=== PATIENT | male | born 1940 | race Caucasian/White ===

== ENCOUNTER 2017-01-08 18:15 | Inpatient (IN) | payer OTHER ==
--- NOTE | 2017-01-08 18:32 | CPEKG ---
Heart Rate: 98 RR Interval: 612 QRSD Interval: 80 QT Interval: 356 QTC Interval: 455 QRS [place]: 1 T Wave [place]: 43 EKG Severity - ABNORMAL ECG - EKG Impression: ATRIAL FIBRILLATION, V-RATE 61-125 Electronically Signed By: Moisés Nicole 08-Jan-2017 22:59:31
[2017-01-08] MEDS ORDERED: ASPIRIN 81 MG CHEWABLE TAB PO ONE (18:34)
[2017-01-08] MEDS ORDERED: NS 1,000 ML IV ONE (18:34)
--- NOTE | 2017-01-08 18:35 | EDPHY ---
H & P Stated Complaint: hx afib 1 hr cp hurts with deep breath HPI/ROS: HPI CHIEF COMPLAINT: Chest pain, atrial fibrillation HISTORY OF PRESENT ILLNESS: Patient is a very pleasant 76-year-old male, visiting from [place], took a flight earlier today landing earlier. He was walking [place] and [place] [address] [place] [place] developed chest discomfort. He describes it as substernal pain. He has a hard time describing the pain. Describes it as a discomfort center of his chest radiates laterally bilaterally. Does not go to his back. Denies jaw pain arm pain neck pain. Denies nausea vomiting or diaphoresis. The pain is worse when he takes deep breath in. He has no history of PE. He is on Xarelto for chronic AFib. He is in AFib chronically reports. Last stress test over 5 years ago. No history of TX or stroke. He otherwise been feeling well. No belly pain, no back pain. No extremity pain. Patient does report that in September he fell on his right knee and has had pain to his right knee and swelling since then. Past Medical History: Atrial fibrillation on Xarelto Past Surgical History: No recent surgery Social History: Denies daily use drugs alcohol tobacco products. Resides in [place]. Here for football game. Family History: Noncontributory ROS REVIEW OF SYSTEMS: A comprehensive 10 point review of systems is otherwise negative aside from elements mentioned in the history of present illness. Exam Constitutional appears well nontoxic, triage nursing summary reviewed, vital signs reviewed, awake/alert. Eyes normal conjunctivae and sclera, EOMI, PERRLA. HENT normal inspection, atraumatic, moist mucus membranes, no epistaxis, neck supple/ no meningismus, no raccoon eyes. Respiratory clear to auscultation bilaterally, normal breath sounds, no respiratory distress, no wheezing. Cardiovascular rate normal, regular rhythm, no murmur, no edema, distal pulses normal. Gastrointestinal soft, non-tender, no rebound, no guarding, normal bowel sounds, no distension, no pulsatile mass. Genitourinary no CVA tenderness. Musculoskeletal no midline vertebral tenderness, full range of motion, no calf swelling, no tenderness of extremities, no meningismus, good pulses, neurovascularly intact. Skin pink, warm, & dry, no rash, skin atraumatic. Neurologic awake, alert and oriented x 3, AAOx3, moves all 4 extremities equally, motor intact, sensory intact, CN II-XII intact, normal cerebellar, normal vision, normal speech. Psychiatric normal mood/affect. Heme/Lymph/Immune no lymphadenopathy. Differential diagnosis includes but is not limited to: ACS, atypical chest pain , pneumothorax, pneumonia, pulmonary embolism, aortic dissection, congestive heart failure, tumor, musculoskeletal pain, esophageal pain, GERD, peptic ulcer disease, pancreatitis Medical Decision Making: Plan for this patient IV establishment with IV fluid bolus, full-dose aspirin, check troponin, EKG, chest x-ray, D-dimer. Re- evaluate. Re-evaluation: EKG interpretation by me on record in [employer] system. Impression time of EKG 1829, this is AFib rate of 98. I do not appreciate acute ischemia. Specifically is no ST elevation or significant ST depression. Q-waves noted V1 V2. Otherwise unremarkable EKG. 1905: I did review this patient's blood work. His D-dimer is negative troponin still pending however the patient has concerning symptoms of sharp tearing chest pain. Will proceed with CT angiogram of his chest to make sure does not have a pulmonary embolism or aortic dissection. CT scan: angio chest with IV contrast this was called to me by Dr. Lopez. Shows no pulmonary embolism and no aortic dissection however it does show significant coronary artery disease. Calcification of the LAD. 2010: Updated patient on findings of CT scan. Significant coronary artery disease seen on the CT angiogram. Discussed at length about possible need for admission observation for chest discomfort. Troponin negative. EKG nonischemic but does show AFib. In the setting that he is 76 years old has unexplained chest discomfort patient be admitted to the hospitalist service for serial enzymes and cardiac rule out. 2017: Spoke with the hospitalist service Dr. Gayle who agrees to admit patient for chest pain evaluation. Source: Patient - Personal History Current Tetanus/Diphtheria Vaccine: Yes - Medical/Surgical History Hx Asthma: No Hx Chronic Respiratory Disease: No Hx Diabetes: No Hx Cardiac Disease: Yes Hx Renal Disease: No Hx Cirrhosis: No Hx Alcoholism: No Hx HIV/AIDS: No Hx Splenectomy or Spleen Trauma: No Other PMH: afib/ - Social History Smoking Status: Former smoker Constitutional: Initial Vital Signs Temperature (C) 36.6 C 01/08/17 18:19 Heart Rate 84 01/08/17 18:19 Respiratory Rate 18 01/08/17 18:19 Blood Pressure 150/105 H 01/08/17 18:19 O2 Sat (%) 99 01/08/17 18:19 O2 Delivery Mode Room Air Allergies/Adverse Reactions: No Known Allergies Allergy (Unverified 01/08/17 18:17) Home Medications: Medication Instructions Recorded Atorvastatin Calcium [Lipitor 20 20 mg PO HS 01/08/17 mg (*)] Budesonide [Rhinocort Allergy] 1 spray NS DAILY 01/08/17 Diltiazem HCl [Diltiazem 24Hr Cd] 180 mg PO HS 01/08/17 Fexofenadine HCl [Louise Allergy] 180 mg PO DAILY 01/08/17 Ranitidine HCl [Zantac] 150 mg PO DAILY 01/08/17 Silodosin [RAPAFLO] 8 mg PO HS 01/08/17 Tadalafil [Cialis] 5 mg PO HS 01/08/17 Ibuprofen [Motrin (*)] 600 mg PO TID tab 01/10/17 Medical Decision Making - Diagnostics Imaging Results: Imaging Impressions Myocardial Perfusion Scan Nuc Med 01/09/17 09:30 Impression: 1. Fixed in for wall defect. 2. No evidence of ischemia. Results reviewed with Dr. Toi Angeles at 10:04 AM - Data Points Laboratory Results: Laboratory Results 01/09/17 04:17 01/09/17 04:17 Medications Given: Atorvastatin Calcium (Lipitor) 20 mg PO HS GRACE Stop: 07/08/17 20:59 Last Admin: 01/09/17 19:37 Dose: 20 mg Diltiazem HCl (Cardizem Er Q24hr) 180 mg PO HS GRACE Stop: 07/08/17 20:59 Last Admin: 01/09/17 19:37 Dose: 180 mg Famotidine (Pepcid) 20 mg PO BID GRACE Stop: 07/08/17 08:59 Last Admin: 01/10/17 08:36 Dose: 20 mg Ibuprofen (Motrin) 600 mg PO TID GRACE Stop: 07/08/17 15:59 Last Admin: 01/10/17 08:36 Dose: 600 mg Discontinued Medications Aspirin (Aspirin) 324 mg PO EDNOW ONE Stop: 01/08/17 18:35 Last Admin: 01/08/17 18:40 Dose: 324 mg Sodium Chloride (Ns) 1,000 mls @ 0 mls/hr IV EDNOW ONE; Wide Open PRN Reason: Protocol Stop: 01/08/17 18:35 Last Admin: 01/08/17 18:41 Dose: 1,000 mls Rivaroxaban (Xarelto) 20 mg PO DAILY GRACE Stop: 07/08/17 08:59 Last Admin: 01/09/17 13:29 Dose: Not Given Departure - Departure Disposition: [facility] Acute Clinical Impression: Chest pain Qualifiers: Chest pain type: unspecified Qualified Code(s): R07.9 - Chest pain, unspecified Condition: Fair
[2017-01-08 18:43] LABS: % IMMATURE GRANULYOCYTES 0.3 % (0.0-1.1); ABSOLUTE IMMATURE GRANULOCYTES 0.03 10^3/uL (0.00-0.10); ADD DIFF? NO; ADD MORPH? NO; ADD SCAN? NO; ATYPICAL LYMPHOCYTE FLAG 0 (0-99); FRAGMENT RBC FLAG 0 (0-99); HEMATOCRIT 41.3 % (40.0-51.0); HEMOGLOBIN 14.3 g/dL (13.7-17.5); LEFT SHIFT FLG 0 (0-99); LIPEMIA HEMOLYSIS FLAG 90 (0-99); MEAN CELL HEMOGLOBIN 32.4 pg (27.9-34.1); MEAN CELL HEMOGLOBIN CONCENTR. 34.6 g/dL (32.4-36.7); MEAN CELL VOLUME 93.4 fL (81.5-99.8); MEAN PLATELET VOLUME 10.6 fL (8.7-11.7); PLATELET CLUMPS FLAG 0 (0-99); PLATELET COUNT 191 10^3/uL (150-400); RED BLOOD CELL COUNT 4.42 10^6/uL (4.40-6.38); RED CELL DISTRIBUTION WIDTH 13.5 % (11.5-15.2)
[2017-01-08 18:51] LABS: INR 1.64 (0.83-1.16); PROTIME(PATIENT) 19.5 SEC (12.0-15.0)
[2017-01-08 18:52] LABS: APTT 35.3 SEC (23.0-38.0)
[2017-01-08 19:02] LABS: ALANINE AMINOTRANSFERASE 37 IU/L (21-72); ALBUMIN 4.3 g/dL (3.5-5.0); ALKALINE PHOSPHATASE 81 IU/L (38-126); ANION GAP 12 mEq/L (8-16); ASPARTATE AMINOTRANSFERASE 30 IU/L (17-59); BILIRUBIN,TOTAL 0.6 mg/dL (0.1-1.4); BILIRUBIN-CONJUGATED 0.2 mg/dL (0.0-0.5); BILIRUBIN-UNCONJUGATED 0.4 mg/dL (0.0-1.1); CALCIUM 9.4 mg/dL (8.5-10.4); CARBON DIOXIDE 26 mEq/l (22-31); CHLORIDE 102 mEq/L (97-110); CREATININE 0.8 mg/dL (0.7-1.3); GLOMERULAR FILTRATION RATE > 60; GLUCOSE 93 mg/dL (70-100); POTASSIUM 3.7 mEq/L (3.5-5.2); SODIUM 140 mEq/L (134-144); TOTAL PROTEIN 6.4 g/dL (6.3-8.2)
[2017-01-08 19:14] LABS: CREATINE KINASE-MB FRACTION 1.46 ng/mL (0.00-3.19); TROPONIN I < 0.012 ng/mL (0.000-0.034)
[2017-01-08] MEDS ORDERED: IOPAMIDOL (ISOVUE 370) 100 ML BTL IV ONE (19:15)
[2017-01-08] MEDS ORDERED: ONDANSETRON DISINTEGRATING 4 MG TAB PO PRN (22:21)
[2017-01-08] MEDS ORDERED: ONDANSETRON 4 MG/2 ML VIAL IVP PRN (22:21)
[2017-01-08] MEDS ORDERED: ACETAMINOPHEN 325 MG TAB PO PRN (22:21)
--- NOTE | 2017-01-09 02:30 | PDGENHP ---
History and Physical - Chief Complaint Chest pain - History of Present Illness 76 yo M with hx AF presents with chest pain. He is visiting from [place] and today experienced an episode of central chest pain with inspiration after walking around town for a few hours. He felt ok while walking around but experienced the pain after returning to his hotel room. The pain lasted for several hours and subsided slowly over time without particular intervention. Patient denies prior hx of CAD and he reports having a normal treadmill stress test about 5 years ago. History Information - Allergies/Home Medication List Allergies/Adverse Reactions: No Known Allergies Allergy (Unverified 01/08/17 18:17) Home Medications: Atorvastatin Calcium [Lipitor 20 mg (*)] 20 mg PO HS 01/08/17 [Last Taken Unknown] Budesonide [Rhinocort Allergy] 1 spray NS DAILY 01/08/17 [Last Taken Unknown] Diltiazem HCl [Diltiazem 24Hr Cd] 180 mg PO HS 01/08/17 [Last Taken Unknown] Fexofenadine HCl [Louise Allergy] 180 mg PO DAILY 01/08/17 [Last Taken 01/08/17 ] Ranitidine HCl [Zantac] 150 mg PO DAILY 01/08/17 [Last Taken 01/08/17] Rivaroxaban [Xarelto] 20 mg PO DAILY 01/08/17 [Last Taken 01/08/17] Silodosin [Rapaflo] 8 mg PO HS 01/08/17 [Last Taken Unknown] Tadalafil [Cialis] 5 mg PO HS 01/08/17 [Last Taken Unknown] I have personally reviewed and updated: family history, medical history - Past Medical History atrial fibrillation - Family History Additional family history: Father had a heart murmur but lived until age 95 - Social History Smoking Status: Former smoker Review of Systems Review of Systems: ROS: 10pt was reviewed & negative except for what was stated in HPI & below Physical Exam Physical Exam: Temp Pulse Resp BP Pulse Ox 36.4 C 84 13 107/66 96 01/08/17 23:24 01/08/17 23:24 01/08/17 23:24 01/08/17 23:24 01/08/17 23:24 Constitutional: no apparent distress, appears nourished Eyes: PERRL, EOMI Ears, Nose, Mouth, Throat: moist mucous membranes, no oral mucosal ulcers Cardiovascular: regular rate and rhythym, no murmur, rub, or gallop Respiratory: no respiratory distress, no rales or rhonchi Gastrointestinal: normoactive bowel sounds, soft, non-tender abdomen Skin: warm, normal color Musculoskeletal: full muscle strength, no muscle tenderness Neurologic: AAOx3, CN II-XII Intact Lab Data & Imaging Review 01/08/17 18:30 01/08/17 18:30 WBC 9.66 10^3/uL (3.80-9.50) H 01/08/17 18:30 RBC 4.42 10^6/uL (4.40-6.38) 01/08/17 18:30 Hgb 14.3 g/dL (13.7-17.5) 01/08/17 18:30 Hct 41.3 % (40.0-51.0) 01/08/17 18:30 MCV 93.4 fL (81.5-99.8) 01/08/17 18:30 MCH 32.4 pg (27.9-34.1) 01/08/17 18:30 MCHC 34.6 g/dL (32.4-36.7) 01/08/17 18:30 RDW 13.5 % (11.5-15.2) 01/08/17 18:30 Plt Count 191 10^3/uL (150-400) 01/08/17 18:30 MPV 10.6 fL (8.7-11.7) 01/08/17 18:30 Neut % (Auto) 77.9 % (39.3-74.2) H 01/08/17 18:30 Lymph % (Auto) 11.5 % (15.0-45.0) L 01/08/17 18:30 [place] % (Auto) 8.3 % (4.5-13.0) 01/08/17 18:30 Eos % (Auto) 1.8 % (0.6-7.6) 01/08/17 18:30 Baso % (Auto) 0.2 % (0.3-1.7) L 01/08/17 18:30 Nucleat RBC Rel Count 0.0 % (0.0-0.2) 01/08/17 18:30 Absolute Neuts (auto) 7.53 10^3/uL (1.70-6.50) H 01/08/17 18:30 Absolute Lymphs (auto) 1.11 10^3/uL (1.00-3.00) 01/08/17 18:30 Absolute Monos (auto) 0.80 10^3/uL (0.30-0.80) 01/08/17 18:30 Absolute Eos (auto) 0.17 10^3/uL (0.03-0.40) 01/08/17 18:30 Absolute Basos (auto) 0.02 10^3/uL (0.02-0.10) 01/08/17 18:30 Absolute Nucleated RBC 0.00 10^3/uL (0-0.01) 01/08/17 18:30 Immature Gran % 0.3 % (0.0-1.1) 01/08/17 18:30 Immature Gran # 0.03 10^3/uL (0.00-0.10) 01/08/17 18:30 PT 19.5 SEC (12.0-15.0) H 01/08/17 18:30 INR 1.64 (0.83-1.16) H 01/08/17 18:30 APTT 35.3 SEC (23.0-38.0) 01/08/17 18:30 D-Dimer < 0.27 ug/mLFEU (0.00-0.50) 01/08/17 18:30 Sodium 140 mEq/L (134-144) 01/08/17 18:30 Potassium 3.7 mEq/L (3.5-5.2) 01/08/17 18:30 Chloride 102 mEq/L (97-110) 01/08/17 18:30 Carbon Dioxide 26 mEq/l (22-31) 01/08/17 18:30 Anion Gap 12 mEq/L (8-16) 01/08/17 18:30 BUN 15 mg/dL (7-23) 01/08/17 18:30 Creatinine 0.8 mg/dL (0.7-1.3) 01/08/17 18:30 Estimated GFR > 60 01/08/17 18:30 Glucose 93 mg/dL (70-100) 01/08/17 18:30 Calcium 9.4 mg/dL (8.5-10.4) 01/08/17 18:30 Magnesium 2.0 mg/dL (1.6-2.3) 01/08/17 18:30 Total Bilirubin 0.6 mg/dL (0.1-1.4) 01/08/17 18:30 Conjugated Bilirubin 0.2 mg/dL (0.0-0.5) 01/08/17 18:30 Unconjugated Bilirubin 0.4 mg/dL (0.0-1.1) 01/08/17 18:30 AST 30 IU/L (17-59) 01/08/17 18:30 ALT 37 IU/L (21-72) 01/08/17 18:30 Alkaline Phosphatase 81 IU/L (38-126) 01/08/17 18:30 Creatine Kinase 82 IU/L (0-224) 01/08/17 18:30 CK-MB (CK-2) Fraction 1.46 ng/mL (0.00-3.19) 01/08/17 18:30 Troponin I < 0.012 ng/mL (0.000-0.034) 01/08/17 18:30 NT-Pro-B Natriuret Pep 644 pg/mL (0-450) H 01/08/17 18:30 Total Protein 6.4 g/dL (6.3-8.2) 01/08/17 18:30 Albumin 4.3 g/dL (3.5-5.0) 01/08/17 18:30 Lipase 109 IU/L (23-300) 01/08/17 18:30 Imaging Review: CTPE without abnormality aside form incidentally found thyroid nodule. Visualized and Interpreted EKG results: Yes EKG additional interpertation: Atrial fibrillation Assessment & Plan Assessment: 76 yo M w/ AF presents with chest pain. Plan: 1. Chest pain - Somewhat atypical in that pain seemed to be unrelated to exertion, but concerning given age nonetheless. Troponin and ECG without evidence of acute ischemia upon admission. - Monitor on telemetry, trend enzymes - Will order nuclear stress test noting recent R knee injury 2. Hx AF - Permanent per patient's report, on Xarelto and diltiazem daily for this. Diet - NPO @ [place], no caffeine Code - Full Ppx - Xarelto Dispo - Admit to observation status
[2017-01-09 04:25] LABS: % IMMATURE GRANULYOCYTES 0.2 % (0.0-1.1); ABSOLUTE IMMATURE GRANULOCYTES 0.01 10^3/uL (0.00-0.10); ADD DIFF? NO; ADD MORPH? NO; ADD SCAN? NO; ATYPICAL LYMPHOCYTE FLAG 0 (0-99); FRAGMENT RBC FLAG 0 (0-99); HEMATOCRIT 34.9 % (40.0-51.0); HEMOGLOBIN 12.1 g/dL (13.7-17.5); LEFT SHIFT FLG 0 (0-99); LIPEMIA HEMOLYSIS FLAG 90 (0-99); MEAN CELL HEMOGLOBIN 32.2 pg (27.9-34.1); MEAN CELL HEMOGLOBIN CONCENTR. 34.7 g/dL (32.4-36.7); MEAN CELL VOLUME 92.8 fL (81.5-99.8); MEAN PLATELET VOLUME 10.4 fL (8.7-11.7); PLATELET CLUMPS FLAG 0 (0-99); PLATELET COUNT 140 10^3/uL (150-400); RED BLOOD CELL COUNT 3.76 10^6/uL (4.40-6.38); RED CELL DISTRIBUTION WIDTH 13.9 % (11.5-15.2)
[2017-01-09 04:48] LABS: ANION GAP 9 mEq/L (8-16); CALCIUM 8.4 mg/dL (8.5-10.4); CARBON DIOXIDE 24 mEq/l (22-31); CHLORIDE 106 mEq/L (97-110); CREATININE 0.8 mg/dL (0.7-1.3); GLOMERULAR FILTRATION RATE > 60; GLUCOSE 92 mg/dL (70-100); SODIUM 139 mEq/L (134-144)
[2017-01-09 04:59] LABS: TROPONIN I < 0.012 ng/mL (0.000-0.034)
[2017-01-09] MEDS ORDERED: RIVAROXABAN 20 MG TAB PO SCH (09:00)
[2017-01-09] MEDS ORDERED: REGADENOSON 0.4 MG/5 ML SYR IVP ONE (09:28)
--- NOTE | 2017-01-09 10:27 | CPR ---
[f rep st] NONINVASIVE CARDIAC PROCEDURE REPORT DATE OF PROCEDURE: 01/09/2017 PROCEDURE: Lexiscan nuclear stress test. INDICATION: The patient is a 76-year-old male with a history of permanent atrial fibrillation, who p resented to the hospital complaining of a few hours of chest pressure. He is visiting [employer] [facility] [employer], and went for a walk on [place], and felt fine. When he returned to his residence, he devel oped a pressure in his chest which persisted for hours. It was worse with deep breaths. He denies a ny nausea, diaphoresis, or radiation of the discomfort. He denies any history of hypertension, diabe jose, hyperlipidemia or prior tobacco use. Procedure consent was obtained and the patient was placed on continuous telemetry. His resting EKG r evealed atrial fibrillation with heart rate of 81. He has a QRS duration of 74, and a QTc of 446. T his is a nonischemic EKG. The patient was infused with Lexiscan and complained of some mild shortnes s of breath. He remained in atrial fibrillation, rate control throughout the study. There were no s ignificant ST-T wave changes with the infusion. His blood pressure at rest was 104/62, and dropped w ith the infusion to 92/58. It recovered within 4 minutes into the recovery phase. PLAN: Await nuclear images. /[id number]/MODL
--- NOTE | 2017-01-09 11:56 | ASMTCMCOM ---
CM Note CM Note Notes: Pt. is a 76-year-old man who chart states is visiting from [place]. Address listed as [facility]. Pt. came in for chest pain. Pt. lives w/ his Apple. Ancitipate independent d/c when ready. CM available should d/c POC change. Date Signed: 01/09/2017 11:55 AM Electronically Signed By:Cici Springer LCSW
--- NOTE | 2017-01-09 12:21 | SOAPPROG ---
[facility] Progress Note Assessment/Plan: Assessment: Full cardiology consultation dictated. 76 y/o man with chronic permanent afib since 2000 visiting from [place]. Last ETT stress test roughly 2011. Had pleuritic CP x 3hrs at hotel yesterday. Denies fevers, chills or shortness of breath. No recent URI. Lexiscan cardiolite stress images today show lack of perfusion in inferior wall (? scar vs artifact vs true ischemia). Currently CP-free and troponins negative x 2. ECG afib with ST elevation < 1mm. Clinically I suspect pericarditis. On Xarelto currently. REC: 1)hold Xarelto 2)echo today to look for pericardial effusion 3)Ibuprofen 600mg PO TID 4)rest cardiolite images wednesday. If matched perfusion defect and CP free could discharge home Wednesday late morning 5)if true ischemia after rest cardiolite images done, cardiac cath Wednesday after 36-48hrs off Xarelto Thanks. Will follow with you. 01/09/17 12:17 Objective: Vital Signs Temp Pulse Resp BP Pulse Ox 36.4 C 73 16 103/69 98 01/09/17 11:21 01/09/17 11:21 01/09/17 11:21 01/09/17 11:21 01/09/17 11:21 Laboratory Results 01/09/17 04:17 01/09/17 04:17 PT 19.5 SEC (12.0-15.0) H 01/08/17 18:30 INR 1.64 (0.83-1.16) H 01/08/17 18:30 ICD10 Worksheet Patient Problems: Problems Problem Status Onset Chest pain Acute
--- NOTE | 2017-01-09 12:32 | HOSPPROG ---
Hospitalist Progress Note Assessment/Plan: First encounter with this patient 76 y/o man with chronic permanent afib since 2000 visiting from [place]. Admitted for chest pain. Lexiscan cardiolite stress images today show lack of perfusion in inferior wall (? scar vs artifact vs true ischemia). Denies CP. Trops negative x 2. Cards consulted today. Suspect Pericarditis Plan: -Ibuprofen 600mg TID -cardiolite imaging tomorrow per Cards -If matched perfusion defect and CP free, discharge. If ? Ischemia, then Cath Wednesday -stopped Xarelto today #Chest pain #?Pericarditis #?Cardia ischemia #Chronic permanent Afib, diltiazem and Xarelto #Chronic AC, holding Xarelto Code - Full Ppx - SCD's Dispo - change to inpatient Subjective: No CP or SOB. No palpitations. feels better Objective: Vital Signs Temp Pulse Resp BP Pulse Ox 36.4 C 73 16 103/69 98 01/09/17 11:21 01/09/17 11:21 01/09/17 11:21 01/09/17 11:21 01/09/17 11:21 Laboratory Results 01/09/17 04:17 01/09/17 04:17 PT 19.5 SEC (12.0-15.0) H 01/08/17 18:30 INR 1.64 (0.83-1.16) H 01/08/17 18:30 - Physical Exam Constitutional: no apparent distress, appears nourished Eyes: PERRL, EOMI Ears, Nose, Mouth, Throat: moist mucous membranes, hearing normal Cardiovascular: regular rate and rhythym, no murmur, rub, or gallop Respiratory: no respiratory distress, no rales or rhonchi, clear to auscultation Gastrointestinal: normoactive bowel sounds, soft, non-tender abdomen Genitourinary: no bladder fullness Skin: warm Neurologic: AAOx3 Psychiatric: interacting appropriately, not anxious, not encephalopathic, thought process linear ICD10 Worksheet Patient Problems: Problems Problem Status Onset Chest pain Acute
--- NOTE | 2017-01-09 13:02 | PDMN ---
Medical Necessity Medical necessity: C/M review: Patient meeets INPT criteria under MCG M-89 Chest pain; Acute chest pain, lack of perfusion in inferior wall on Lexiscan cardiolite stress images 01/09/2017 concerning for possible cardiac ischemia, suspect pericarditis requiring planned 01/11/2016 Cardiolite rest images, if shows likely cardiac ischemia, then 01/11/2017 cardiac cath and ongoing cardiac monitoring, comorbid chronic permanent atrial fibrillation, chronic anticoagulation. MD anticipates > 2 MN LOS for ongoing med nec for ongoing eval and TX of above.
--- NOTE | 2017-01-09 13:17 | GCON ---
[f rep st] CONSULTATION DATE OF CONSULTATION: 01/09/2017 REASON FOR CONSULTATION: Evaluate gentleman with chest pain and abnormal stress Cardiolite images. 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 He has had atrial fibrillation since 1996, and permanent, chronic atrial fibrillation since roughly 2000. Kera heart sees a calibration checker in [place], and thinks his last stress test was in 2011 and normal. He had an e cho 2-3 years ago, which he was told was okay. He has chronic sinusitis and a hoarse voice from sinu s drainage and GERD. He, however, is active without chest pain in [place]. He was visiting for a bret weekend, and was walking around [place] with no chest pain. When he got back to his hotel, he started to have pleuritic chest pain at rest, which continued for 2-3 hours. He came to the emergenc y room, and eventually was relieved with aspirin. Currently he is pain free. He denies fevers, chil ls, or recent URI symptoms. He has no near syncope or PND. Lexiscan stress images were done this mo rning, which suggested poor perfusion of the inferior area of his heart. PAST MEDICAL HISTORY: Chronic, permanent atrial fibrillation, hyperlipidemia, and chronic sinusitis. PAST SURGICAL HISTORY: None. CURRENT MEDICATIONS: Atorvastatin 20 mg per day, diltiazem CD 180 mg per day, Xarelto 20 mg per day, and aspirin x1. ALLERGIES: No known drug allergies. SOCIAL HISTORY: The patient has moderate alcohol intake. He quit tobacco 40 years ago. FAMILY HISTORY: Unremarkable for premature coronary artery disease. REVIEW OF SYSTEMS: The patient reports no TIA or CVA symptoms. He has no GI bleed symptoms, such as hematemesis, melena, or bright red blood per rectum. He reports no hemoptysis. Rest of 10-point re view of systems are negative. PHYSICAL EXAMINATION: VITAL SIGNS: Afebrile. Pulse 73 and irregularly irregular, consistent with a trial fibrillation. Blood pressure 103/69, respirations 20, weight 82.8 kg. GENERAL: A normal-appe aring gentleman in no acute distress without chest pain or using accessory respiratory muscles. EYES : Pupils equal, reactive to light. ENT: Oral mucosa with no cyanosis. NECK: Jugular venous press ure to 7 cm. Carotid pulses 2+ bilaterally with no obvious bruits. No thyromegaly noted. LUNGS: C lear to auscultation bilaterally without rales, rhonchi, or wheezing. HEART: Irregularly irregular rhythm with 1/6 nonradiating systolic murmur. No S3 or cardiac rub heard. ABDOMEN: Soft and nonten lynette. No guarding or rebound. No hepatosplenomegaly or ascites. EXTREMITIES: 2+ peripheral pulses, including femoral and pedal pulses. No edema noted. MUSCULOSKELETAL: No scoliosis or nuchal rigid ity. SKIN: No bleeding or cyanosis. NEURO: Normal affect and mood. LABORATORY STUDIES: EKG: Atrial fibrillation with nonspecific ST elevation, less than 1 mm througho ut. LABS: White count 5.9, hematocrit 35, platelets 140,000, MCV 93. INR 1.64. Sodium 139, potassium 4 .0, chloride 106, bicarb 24, BUN 13, creatinine 0.8, glucose 92. Troponin x2 negative. LFTs within normal limits. NT proBNP level 644. IMPRESSION: A 76-year-old gentleman with chronic, permanent atrial fibrillation for the last 15 year s with a 3-hour episode of pleuritic chest pain yesterday. Clinically, I am suspicious more of a per icarditis, probably viral in etiology. However, cannot exclude obstructive coronary artery disease, based on his stress Cardiolite images. RECOMMENDATIONS: 1. Would hold Xarelto in anticipation for possible catheterization in the next 2 days. 2. Would put on ibuprofen 600 mg q.8 hours empirically for the next several days. 3. Would do an echocardiogram today to evaluate LV function, and see if there is a significant peric ardial effusion. 4. In the morning, would do rest Cardiolite images. If he has a fixed perfusion defect and he is ch est pain-free, feel he can be discharged and go back to [place]. If there is a mismatched perfusion d efect consistent with inferior ischemia, would recommend he get a cardiac angiogram and possible sten t this hospitalization. Copy requested to: Patient's chart at [facility] /[id number]/MODL
[2017-01-09] MEDS: FAMOTIDINE 20 MG TAB PO SCH ×2 (13:30→19:37)
[2017-01-09] MEDS: IBUPROFEN 600 MG TAB PO SCH (17:34)
[2017-01-09] MEDS ORDERED: ATORVASTATIN CALCIUM 20 MG TAB PO SCH (21:00)
[2017-01-09] MEDS ORDERED: DILTIAZEM CD 180 MG CAP PO SCH (21:00)
[2017-01-10] MEDS: IBUPROFEN 600 MG TAB PO SCH ×2 (00:28→08:36)
[2017-01-10 05:09] VITALS: O2SAT 95
--- NOTE | 2017-01-10 07:58 | ECHO ---
[email or web address] [address] [address] Main: [phone] Fax: Transthoracic Echocardiogram Name: AR PRINCE MR#: [id number] Study Date: 01/09/2017 Study Time: 02:36 PM Date of : 1940 Age: 76 year(s) Height: 182.9 cm (72 in.) Weight: 82.55 kg (182 lb.) BSA: 2.05 m2 Gender: Male Examination: Echo Indication: Chest pain/suspect pericarditis Image Quality: Contrast: Requested by: Aleks Cotter BP: 103 mmHg/69 mmHg Heart Rate: Rhythm: Indication: Chest pain/suspect pericarditis Procedure Staff Termite Control Technician: Komal Jamison Physician: Aleks Cotter Requesting Provider: Conclusions: 1)Normal LV size and systolic function with a LVEF of 68% and normal wall motions. 2)Mild RV enlargement with normal RVEF. 3)Moderate left atrial and moderate to severe right atrial enlargement(s). 4)Mild MR without MV prolpase. 5)Mild TR with estimated normal PA pressures. 6)Trivial pericardial effusion noted with no tamponade signs. Measurements: Chambers Valvular Assessment AV/MV Valvular Assessment TV/PV Normal Normal Normal Name Value Range Name Value Range Name Value Range Ao Edith (MM): 3.3 cm (2.2 cm-3.7 AV Vmax: 0.98 m/s (1 m/s-1.7 TR Vmax: 1.98 mm/s ( - ) cm) m/s) TR PGmax: 16 mmHg ( - ) IVSd (2D): 0.6 cm (0.6 cm-1.1 AV maxP mmHg ( - ) syst. PAP: 26 mmHg ( - ) cm) MV E Vmax: 1.05 m/s ( - ) LVDd (2D): 5.0 cm (4.2 cm-5.9 cm) LVDs (2D): 3.1 cm (2.1 cm-4 cm) LVPWd (2D): 0.8 cm (0.6 cm-1 cm) LVEF (2D): 68 (>=54 %) EF Range: 65-70 % Continued Measurements: Chambers Valvular Assessment AV/MV Valvular Assessment TV/PV Name Value Name Value Name Value LADs: 5.3 cm MV E/E' Septal: 17.10 CVP (est.): 10 mmHg LADs Lon.4 cm MV E/E' Lateral: 11.80 Patient: AR PRINCE Study Date: 01/09/2017 Page 1 of 2 02:36 PM LA Area: 27.5 cm2 Additional Vessels Name Value Ao Ascendin.5 cm Findings: Left Ventricle: Normal size left ventricle. No LV hypertrophy. Normal global systolic LV function. The ejection fraction is estimated to be 65-70 %. No regional wall motion abnormality. Unable to assess diastolic dysfunction. Right Ventricle: Mildly dilated right ventricle. Normal RV function. Left Atrium: The left atrium is moderately dilated. Right Atrium: The right atrium is moderately to severely dilated. Mitral Valve: The mitral valve is normal in appearance and function. Mild mitral valve regurgitation is present. Aortic Valve: The aortic valve is normal in appearance and function. Tricuspid Valve: The tricuspid valve is normal in appearance and function. Mild tricuspid regurgitation is present. The pulmonary artery pressure is normal. Pulmonic Valve: The pulmonic valve is normal in appearance and function. Aorta: The aorta is normal. Pericardium: Trivial pericardial effusion. No echocardiographic evidence of hemodynamic compromise. (No Signature Object) Patient: AR PRINCE Study Date: 01/09/2017 Page 2 of 2 02:36 PM [id number]
[2017-01-10 08:09] VITALS: BP 113/74; RESP 17; TEMP 97.9
[2017-01-10] MEDS: FAMOTIDINE 20 MG TAB PO SCH (08:36)
--- NOTE | 2017-01-10 10:11 | SOAPPROG ---
VANESSA Progress Note Assessment/Plan: Assessment: 1. Pleuritic chest pain: resolved: Query pericarditis 2. Chronic atrial fibrillation 3. Anemia (hemoglobin 14-> 12 overnight) Tests: Echo yesterday with normal LV function. Inferolateral wall thickening. Small pericardial effusion. Left atrial enlargement. MPI fixed inferolateral defect. Significant uptake by the liver. 01/10/17 10:06 Impression: He has ruled out for DC by enzymes. Clinical history consistent with pericarditic pain rather than ischemic pain. Stable hemodynamics. Feeling well. - 10 days ibuprofen for presumed pericarditis. No indication for colchicine. -No indication for further cardiac evaluation at this time. -Workup for anemia. -Hold Xarelto till workup completed. -follow up cardiology at home -continue statin and diltiazem for rate control and presumptive CAD Subjective: Feeling well. Walking around without limitations. No further chest pain. Cardiac ROS negative today. Objective: Medications Generic Name Dose Route Start Last Admin Trade Name Freq PRN Reason Stop Dose Admin Atorvastatin Calcium 20 mg 01/09/17 21:00 01/09/17 19:37 Lipitor PO 07/08/17 20:59 20 mg HS GRACE Diltiazem HCl 180 mg 01/09/17 21:00 01/09/17 19:37 Cardizem Er Q24hr PO 07/08/17 20:59 180 mg HS GRACE Ibuprofen 600 mg 01/09/17 16:00 01/10/17 08:36 Motrin PO 07/08/17 15:59 600 mg TID GARCE Discontinued Medications Generic Name Dose Route Start Last Admin Trade Name Freq PRN Reason Stop Dose Admin Rivaroxaban 20 mg 01/09/17 09:00 01/09/17 13:29 Xarelto PO 07/08/17 08:59 Not Given DAILY COUNTS INCLUDE 234 BEDS AT THE [facility] Vital Signs Temp Pulse Resp BP Pulse Ox 36.6 C 88 17 113/74 95 01/10/17 08:00 01/10/17 08:00 01/10/17 08:00 01/10/17 08:00 01/10/17 08:00 01/09/17 01/10/17 01/11/17 05:59 05:59 05:59 Intake Total 550 Balance 550 PT 19.5 SEC (12.0-15.0) H 01/08/17 18:30 INR 1.64 (0.83-1.16) H 01/08/17 18:30 Laboratory Tests 01/08/17 01/08/17 01/09/17 18:30 18:30 04:17 Hgb 14.3 12.1 L Troponin I < 0.012 01/09/17 04:17 Hgb Troponin I < 0.012 Physical Exam - Physical Exam General Appearance: alert, no apparent distress Neck: non-tender, full range of motion Respiratory: chest non-tender, lungs clear, normal breath sounds Cardiac/Chest: normal peripheral pulses, irregularly irregular, No edema, No gallop, No systolic murmur Peripheral Pulses: 1+: carotid (R), carotid (L) Abdomen: normal bowel sounds, non-tender Back: Normal inspection Skin: normal color, warm/dry Lymphatic: no adenopathy Extremities: normal range of motion, non-tender Neuro/Psych: no motor/sensory deficits, normal mood/affect, oriented x 3 ICD10 Worksheet Patient Problems: Problems Problem Status Onset Chest pain Acute Past Medical History - Personal History Current Tetanus/Diphtheria Vaccine: Yes - Medical/Surgical History Hx Asthma: No Hx Chronic Respiratory Disease: No Hx Cardiac Disease: Yes Hx Diabetes: No Hx Renal Disease: No Hx Alcoholism: No Hx Cirrhosis: No Hx HIV/AIDS: No Hx Splenectomy or Spleen Trauma: No Other PMH: Afib, GERD, tonsillectomy, R knee brace - Social History Smoking Status: Former smoker Review of Systems - Review of Systems Constitutional: no symptoms reported EENTM: no symptoms reported Respiratory: no symptoms reported Cardiac: no symptoms reported Gastrointestinal/Abdominal: no symptoms reported Genitourinary: no symptoms Musculoskelatal: no symptoms Skin: no symptoms Neurological: no symptoms Hematologic/Lymphatic: no symptoms reported Immunologic/allergic: no symptoms reported
--- NOTE | 2017-01-10 11:47 | PDDCSUM ---
Discharge Summary Discharge Summary: 76 y/o man with chronic permanent afib since 2000 visiting from [place]. Admitted for chest pain. Lexiscan ON 01/09 today show lack of perfusion in inferior wall (? scar vs artifact vs true ischemia). On the day of discharge he had a resting cardiolyte test which showed matched perfusion defect. No CP and NO SOB. As for the etiology of the CP, Carlos began treatment for pericarditis with Ibuprofen and he feels better. He will be flying back to [place] today and will f/u with Cardiology there. He is to continue Ibuprofen 600mg TID x 10 days total. He had a small drop in Hgb and this can be w/u in Xarelto has been stopped per Cardiology until anemia w/u is complete and while he is on Ibuprofen DDX: #Chest pain #Pericarditis #?Cardia ischemia #Chronic permanent Afib, diltiazem. Holding Xarelto #Chronic AC, holding Xarelto Exam: NAD AAOX3 RRR CTAB S/NT/ND NO LE EDEMA MEDS: SEE MED REC F/U: WILL F/U WITH CARDS IN TOTAL CARE TIME SPENT ON D/C IS 35 MINUTES
[2017-01-10 12:06] VITALS: PULSE 82
--- NOTE | 2017-01-10 12:12 | ASMTCMCOM ---
CM Note CM Note Notes: Patient has been discharged home. He and his will be flying back to [place]. No other needs at this time. Date Signed: 01/10/2017 12:11 PM Electronically Signed By:Madhavi Nava LCSW
--- NOTE | 2017-01-10 14:31 | ASDISCHSUM ---
Discharge Information Plan Status:Home with No Needs Medically Cleared to Leave:01/10/2017 Discharge Date:01/10/2017 01:01 PM CM D/C Disposition:Home, Routine, Self-Care ADT D/C Disposition:Home, Routine, Self-Care Projected Discharge Date:01/10/2017 02:00 PM Transportation at D/C:Family Discharge Delay Reason: Follow-Up Date:01/10/2017 02:00 PM Discharge Slot:2 - 12:01 pm - 18:00 pm Final Diagnosis:CP, Pericarditis, Afib Placement Information Patient Contact Information Contact Name:MATTHEW Relationship: Address:[address] City:[facility] Phone: State/Zip Code:[place] [address] Email: Financial Information Financial Class:[employer] Primary Plan Desc:[facility] Primary Plan Number:[id number] Secondary Plan Desc: Secondary Plan Number: Assessment Information [facility] CM Progress Note CM Note CM Note Notes: Pt. is a 76-year-old man who chart states is visiting from [place]. Address listed as [facility]. Pt. came in for chest pain. Pt. lives w/ his Carol. Garcia independent d/c when ready. CM available should d/c POC change. Date Signed: 01/09/2017 11:55 AM Electronically Signed By:Cici Springer LCSW [facility] CM Progress Note CM Note CM Note Notes: Patient has been discharged home. He and his will be flying back to [place]. No other needs at this time. Date Signed: 01/10/2017 12:11 PM Electronically Signed By:Madhavi Nava LCSW Intervention Information Intervention Type:*Incorrect Registration Date of Service:01/08/2017 08:50 PM Patient Type:Observation Staff Member:CHARLI Cool Shelly Hours:0.25 Discipline: Severity:1 (0-1 Hours) Comment:Registered inpatient; admit order writ ten observation status.
== END 2017-01-10 13:01 | disposition home or self-care (01) | DRG 316 ==
LOC: INTOOBSV 20:16 → F2W 21:00 → OBSVTOIN 01-09 12:40
PROVIDERS: ADMIT Internal Medicine; ATTEND Family Medicine
DX: I31.9 Disease of pericardium, unspecified (principal); I48.2 Chronic atrial fibrillation; I25.10 Atherosclerotic heart disease of native coronary artery without angina pectoris; R94.39 Abnormal result of other cardiovascular function study; E04.1 Nontoxic single thyroid nodule; K21.9 Gastro-esophageal reflux disease without esophagitis; E78.5 Hyperlipidemia, unspecified; D64.9 Anemia, unspecified; Z87.891 Personal history of nicotine dependence
CPT/HCPCS: A9500; G0378; J2785; Q9967